=== PATIENT | female | born 1975 | race Hispanic/Latino ===

== ENCOUNTER 2017-04-04 09:46 | Emergency (ER) | payer OTHER ==
[2017-04-04 10:54] LABS: Basophils % (Auto) 0.6 % (0.0-1.8); Eosinophils % (Auto) 0.8 % (0.0-4.3); Hematocrit 41.5 % (30.3-42.9); Hemoglobin 14.1 gm/dl (10.1-14.3); Mean Corpuscular HGB Conc 34 % (30-34); Mean Corpuscular Hemoglobin 30 pg (28-32); Mean Corpuscular Volume 89 fl (79-97); Platelet Count 238 K/mm3 (140-440); Red Blood Count 4.68 M/mm3 (3.65-5.03); Red Cell Distribution Width 13.5 % (13.2-15.2); White Blood Count 8.3 K/mm3 (4.5-11.0)
[2017-04-04 11:03] LABS: Anion Gap 17 mmol/L; Blood Urea Nitrogen 7 mg/dL (7-17); Calcium 8.7 mg/dL (8.4-10.2); Carbon Dioxide 29 mmol/L (22-30); Chloride 93.6 mmol/L (98-107); Glucose 126 mg/dL (65-100); Potassium 3.9 mmol/L (3.6-5.0); Sodium 136 mmol/L (137-145)
--- NOTE | 2017-04-04 11:58 | Emergency Department Report ---
HPI - General Chief Complaint: Chest Pain Time Seen by Provider: 04/04/17 11:10 - HPI HPI: This is a 41-year-old female presents to the emergency department home with a 1-2 day history of upper abdominal pain, shortness of breath, palpitations. Patient says that this happened to her in the past but she has never been seen for. She has not taken anything for her symptoms prior presentation. She is a tobacco smoker but denies any illicit drug use. She does not have any primary care physician. No recent travel or sick contacts at home. She has a past surgical history of a cholecystectomy. ED Past Medical Hx - Past Medical History Previous Medical History?: Yes Hx Hypertension: Yes Additional medical history: Heart Palpitations - Surgical History Past Surgical History?: Yes Hx Cholecystectomy: Yes - Social History Smoking Status: Current Every Day Smoker Substance Use Type: None - Medications Home Medications: Home Medications Medication Instructions Recorded Confirmed Last Taken Type ALPRAZolam [Xanax TAB] 0.5 mg PO BID PRN #10 tab 04/04/17 Unknown Rx ED Review of Systems ROS: Stated complaint: BJ Other details as noted in HPI Comment: All other systems reviewed and negative Constitutional: denies: chills, fever Eyes: denies: eye pain, eye discharge, vision change ENT: denies: ear pain, throat pain Respiratory: shortness of breath. denies: cough, wheezing Cardiovascular: palpitations. denies: chest pain Gastrointestinal: abdominal pain. denies: vomiting Genitourinary: denies: urgency, dysuria, discharge Musculoskeletal: denies: back pain, joint swelling, arthralgia Skin: denies: rash, lesions Neurological: denies: headache, weakness, paresthesias Physical Exam - Physical Exam Vital Signs: Vital Signs 04/04/17 04/04/17 04/04/17 10:21 11:32 11:33 Temperature 98 F 98.1 F Pulse Rate 94 H 77 Respiratory 16 12 13 Rate Blood Pressure 128/84 Blood Pressure 123/85 [Left] O2 Sat by Pulse 99 100 100 Oximetry Physical Exam: GENERAL: The patient is well-developed well-nourished. HENT: Normocephalic. Atraumatic. Patient has moist mucous membranes. EYES: Extraocular motions are intact. Pupils equal reactive to light bilaterally. NECK: Supple. No meningitic signs are noted. There is no adenopathy noted. CHEST/LUNGS: Clear to auscultation. There is no respiratory distress noted. HEART/CARDIOVASCULAR: Regular. There is no tachycardia. There is no gallop rub or murmur. ABDOMEN: Abdomen is soft. There is some tenderness to palpation to the right lower quadrant of the abdomen. No guarding rebound tenderness. Patient has normal bowel sounds. There is no abdominal distention. SKIN: There is no rash. There is no edema. There is no diaphoresis. NEURO: The patient is awake, alert, and oriented. The patient is cooperative. The patient has no focal neurologic deficits. The patient has normal speech. MUSCULOSKELETAL: There is no tenderness or deformity. There is no limitation range of motion. There is no evidence of acute injury. ED Course Vital Signs 04/04/17 04/04/17 04/04/17 10:21 11:32 11:33 Temperature 98 F 98.1 F Pulse Rate 94 H 77 Respiratory 16 12 13 Rate Blood Pressure 128/84 Blood Pressure 123/85 [Left] O2 Sat by Pulse 99 100 100 Oximetry ED Medical Decision Making - Lab Data Result diagrams: 04/04/17 10:33 04/04/17 10:33 - EKG Data -: EKG Interpreted by Me EKG shows normal: sinus rhythm, axis, intervals, QRS complexes, ST-T waves Rate: normal - EKG Data When compared to previous EKG there are: previous EKG unavailable Interpretation: normal EKG - Radiology Data Radiology results: report reviewed, image reviewed interpreted by me: Chest x-ray does not show any acute process. There are no pleural effusions, obvious pneumonia and there is no pneumothorax. Abdominal x-ray does not show any acute process. CT of the abdomen and pelvis without contrast does not show any acute process. - Medical Decision Making 41-year-old female presents to the emergency department with some different abdominal discomfort, palpitations and concern for anxiety. Vital signs stable throughout her ED course including being afebrile. EKG does not show any signs of a sore elevation [place], ischemia or dysrhythmia. Abdomen unremarkable including negative troponin, negative d-dimer. She is not and there is no urinary tract infection. The patient does have some reproducible right lower quadrant abdominal tenderness to palpation, the CT of the abdomen and pelvis was negative for any acute process. She will be given multiple referrals for primary care clinics as well as the [facility]. We will start her on a very low-dose of the Xanax for possible anxiety and she understands the sedating side effects and when it is appropriate to take this medication. She will return to the ER for any worsening of her symptoms or any acute distress. - Differential Diagnosis appendicitis, gastritis, anxiety, PE Critical Care Time: No Critical care attestation.: If time is entered above; I have spent that time in minutes in the direct care of this critically ill patient, excluding procedure time. ED Disposition Clinical Impression: Palpitations, Anxiety Abdominal pain Qualifiers: Abdominal location: unspecified location Qualified Code(s): R10.9 - Unspecified abdominal pain Disposition: TO HOME OR SELFCARE Is pt being admited?: No Condition: Stable Instructions: Anxiety (ED), Abdominal Pain (ED), Palpitations (ED) Additional Instructions: Please follow up with a primary care doctor in the next few days if possible. Return to the emergency Department with any worsening of her symptoms or any acute distress. You have been prescribed a medication that is sedating and therefore should not be taken prior to driving, working, and responsible for children and in no way should be mixed with alcohol of any quantity. Prescriptions: ALPRAZolam [Xanax TAB] 0.5 mg PO BID PRN #10 tab PRN Reason: Anxiety Referrals: PRIMARY CARE, [Primary Care Provider] - 3-5 Days [facility] [Outside] - 3-[address] [facility] [Outside] - 3-5 Days [facility] [Outside] - 3-5 Days [facility] [Outside] - 3-5 Days Time of Disposition: 14:44
[2017-04-04 12:12] LABS: Alanine Aminotransferase 13 units/L (7-56); Albumin 4.2 g/dL (3.9-5); Albumin/Globulin Ratio 1.6 %; Alkaline Phosphatase 61 units/L (35-129); Lipase 21 units/L (13-60); Total Protein 6.8 g/dL (6.3-8.2)
[2017-04-04 12:12] LABS: Bilirubin,Urine NEG (Negative); Blood,Urine NEG (Negative); Ketones,Urine NEG (Negative); Leukocyte Esterase,Urine NEG (Negative); Mucus,Urine FEW /HPF; Nitrite,Urine NEG (Negative); Protein,Urine <15 mg/dL mg/dL (Negative); Urobilinogen,Urine < 2.0 mg/dL (<2.0); WBC,Urine < 1.0 /HPF (0.0-6.0)
[2017-04-04 12:16] LABS: Bilirubin,Direct < 0.2 mg/dL (0-0.2); Bilirubin,Indirect 0.3 mg/dL
--- NOTE | 2017-04-04 12:57 | XRay Report ---
ABDOMINAL SERIES: History: Abdominal pain, palpitations. Erect chest film shows no acute or significant changes involving the heart or lung perez. There is no evidence of free air beneath the diaphragms. The gas pattern within the abdomen is unremarkable. There is no evidence of bowel dilatation, significant air-fluid levels, or masses. Organ shadows are unremarkable. Cholecystectomy clips are noted. IMPRESSION: Abdominal series within normal limits.
--- NOTE | 2017-04-04 14:02 | Cat Scan Report ---
CT OF THE ABDOMEN AND PELVIS WITHOUT CONTRAST HISTORY: Abdominal pain. TECHNIQUE: Helical CT without contrast. Sagittal and coronal reformatted images. FINDINGS: Within the limits of a noncontrast exam, the abdominal and pelvic viscera are within normal limits. The liver, biliary system, pancreas, spleen, kidneys, adrenal glands and bladder are unremarkable. The bowel loops are normal caliber and wall thickness. Normal appendix. The aorta is normal caliber. No ascites, bulky adenopathy or inflammatory changes. The uterus and adnexa are within normal limits. The lung bases are clear. Normal heart size. No suspicious bony lesion. IMPRESSION: Unremarkable noncontrast CT of the abdomen and pelvis. No acute process is detected.
[2017-04-04 14:55] VITALS: BP 128/78
== END 2017-04-04 14:55 | disposition home or self-care (01) ==
LOC: ED 09:46
DX: F41.9 Anxiety disorder, unspecified (principal); I10 Essential (primary) hypertension; F17.210 Nicotine dependence, cigarettes, uncomplicated; R10.31 Right lower quadrant pain
CPT/HCPCS: 36415; 74022; 74176; 80048; 80074; 81001; 81025; 83690; 84484; 85025; 85379; 93005; 93010; 99285